=== PATIENT | female | born 1955 | race Caucasian/White ===

== ENCOUNTER → 2017-03-17 | Outpatient (CLI) | payer OTHER | LOC: BMCIMAGING 16:17 | PROVIDERS: ATTEND Internal Medicine Infectious Disease | DX: R53.83 Other fatigue (principal); R07.9 Chest pain, unspecified; M51.35 Other intervertebral disc degeneration, thoracolumbar region ==

== ENCOUNTER → 2017-07-10 | Outpatient (CLI) | payer OTHER ==
[~2017-07-10] MED LIST: IOPAMIDOL (ISOVUE-300) 100 ML BTL ONE
== END ==
LOC: CIMAGING 13:12
PROVIDERS: ATTEND Internal Medicine
DX: K59.00 Constipation, unspecified (principal); D18.09 Hemangioma of other sites; N20.0 Calculus of kidney; Z80.0 Family history of malignant neoplasm of digestive organs; M51.34 Other intervertebral disc degeneration, thoracic region; M51.36 Other intervertebral disc degeneration, lumbar region; M51.26 Other intervertebral disc displacement, lumbar region; M51.27 Other intervertebral disc displacement, lumbosacral region
CPT/HCPCS: 74177-PO; Q9967

== ENCOUNTER 2017-11-13 16:01 | Emergency (ER) | payer OTHER ==
[2017-11-13 16:11] VITALS: RESP 16; TEMP 97.7
--- NOTE | 2017-11-13 16:16 | EDPHY ---
HPI/HX/ROS/PE/MDM Narrative: CHIEF COMPLAINT: Chest pain HPI: This patient is a 62 year old female complaining of chest pain. She has intermittent episodes of "gripping in the chest" for the last three months. This pain begins suddenly and often radiates to her jaw. The pains are sharp and brief, usually resolving within 1-2 minutes. Her pain is not increased with exertion. Recently, these episodes have become more frequent. She has attributed them to stress in the past. Last night, she was getting ready for bed and noted a racing heartbeat. Her has a heart rate monitor and she measured her pulse at 90 bpm. She states her normal heart rate is under 70bpm and she became concerned. Occasionally when she works out, she feels like her heart "cannot keep up with her", but she has not had increased symptoms at those times. She denies known history of heart problems. Additionally, the patient had a recent weight loss of 25 lbs of unknown etiology. She has followed up with PCP. She states she always has pain in her abdomen due to IBS, but denies any new or unusual discomfort. No fever, shortness of breath, vomiting, urinary complaints, or other associated symptoms. REVIEW OF SYSTEMS: Aside from elements discussed in the HPI, a comprehensive 10-point review of systems was reviewed and is negative. PMH: IBS. SOCIAL HISTORY: . Lives in [place]. Employed. PHYSICAL EXAM: General:Patient is alert, in no acute distress. ENT:Eyes are normal to inspection. ENT inspection normal. Neck: Normal inspection. Full range of motion. Respiratory:No respiratory distress. Breath sounds normal bilaterally. Cardiovascular: Regular rate and rhythm. Strong peripheral pulses. Normal cap refill. Abdomen:The abdomen is nontender to palpation. There are no peritoneal signs. There are normal bowel sounds. Back: Normal to inspection. No tenderness to palpation. Skin: Normal color. No rash. Warm and dry. Extremities: Normal appearance. Full range of motion. Neuro: Oriented x3. Normal motor function. Normal sensory function. ED Course: 62 y/o female presents with three month history of intermittent chest pains. Exam unremarkable. Plan for EKG, chest x-ray, labs including CBC, chemistries, troponin, and D-dimer. EKG was ordered and interpreted by myself. Please see [facility] system for official reading. Chest x-ray unremarkable. Troponin negative. Laboratory studies otherwise unremarkable. D-dimer pending at this time. D-dimer negative. 17:45 Reassessed patient. Discussed results. Plan to discharge home in good condition with referral to cardiology. She is comfortable with this plan. MDM: This patient presents with atypical chest pain that has occurred for several months. Workup in the ED is negative for PE, ACS, PTx, PNA or TAD. I offered her admission to the hospital for further testing, but she declines. - Data Points Imaging Results: Imaging Impressions Chest X-Ray 11/13/17 16:14 Impression: Airways disease. Imaging: I viewed and interpreted images myself Laboratory Results: Laboratory Results 11/13/17 16:20 11/13/17 16:20 11/13/17 11/13/17 11/13/17 16:20 16:20 16:20 WBC 5.88 10^3/uL 10^3/uL (3.80-9.50) RBC 4.49 10^6/uL 10^6/uL (4.18-5.33) Hgb 14.3 g/dL g/dL (12.6-16.3) Hct 42.5 % % (38.0-47.0) MCV 94.7 fL fL (81.5-99.8) MCH 31.8 pg pg (27.9-34.1) MCHC 33.6 g/dL g/dL (32.4-36.7) RDW 12.6 % % (11.5-15.2) Plt Count 320 10^3/uL 10^3/uL (150-400) MPV 10.0 fL fL (8.7-11.7) Neut % (Auto) 47.8 % % (39.3-74.2) Lymph % (Auto) 41.2 % % (15.0-45.0) [place] % (Auto) 8.2 % % (4.5-13.0) Eos % (Auto) 1.7 % % (0.6-7.6) Baso % (Auto) 0.9 % % (0.3-1.7) Nucleat RBC Rel Count 0.0 % % (0.0-0.2) Absolute Neuts (auto) 2.82 10^3/uL 10^3/uL (1.70-6.50) Absolute Lymphs (auto) 2.42 10^3/uL 10^3/uL (1.00-3.00) Absolute Monos (auto) 0.48 10^3/uL 10^3/uL (0.30-0.80) Absolute Eos (auto) 0.10 10^3/uL 10^3/uL (0.03-0.40) Absolute Basos (auto) 0.05 10^3/uL 10^3/uL (0.02-0.10) Absolute Nucleated RBC 0.00 10^3/uL 10^3/uL (0-0.01) Immature Gran % 0.2 % % (0.0-1.1) Immature Gran # 0.01 10^3/uL 10^3/uL (0.00-0.10) D-Dimer < 0.27 ug/mLFEU ug/mLFEU (0.00-0.50) Sodium 137 mEq/L mEq/L (135-145) Potassium 4.2 mEq/L mEq/L (3.5-5.2) Chloride 100 mEq/L mEq/L (97-110) Carbon Dioxide 25 mEq/l mEq/l (22-31) Anion Gap 12 mEq/L mEq/L (8-16) BUN 23 mg/dL mg/dL (7-23) Creatinine 1.0 mg/dL mg/dL (0.6-1.0) Estimated GFR 57 Glucose 98 mg/dL mg/dL (70-100) Calcium 9.9 mg/dL mg/dL (8.5-10.4) Troponin I < 0.012 ng/mL ng/mL (0.000-0.034) General Time Seen by Provider: 11/13/17 16:13 Initial Vital Signs: Initial Vital Signs Temperature (C) 36.5 C 11/13/17 16:09 Heart Rate 65 11/13/17 16:09 Respiratory Rate 16 11/13/17 16:09 Blood Pressure 119/82 H 11/13/17 16:09 O2 Sat (%) 99 11/13/17 16:09 O2 Delivery Mode Room Air Allergies/Adverse Reactions: acetaminophen [From Vicodin] Allergy (Verified 11/13/17 16:06) hydrocodone bitartrate [From Vicodin] Allergy (Verified 11/13/17 16:06) hydromorphone HCl [From Dilaudid] Allergy (Verified 11/13/17 16:06) Iodine and Iodide Containing Produc Allergy (Verified 11/13/17 16:06) oxycodone HCl [From Percocet] Allergy (Verified 11/13/17 16:06) Penicillins Allergy (Verified 11/13/17 16:06) promethazine [From Phenergan] Allergy (Verified 11/13/17 16:07) adhesive tape Allergy (Uncoded 10/19/14 20:57) Home Medications: Medication Instructions Recorded OXcarbazepine [Trileptal 300mg (*)] 300 mg PO HS 05/06/11 Zolpidem Tartrate [Ambien 10 mg] 5 mg PO HS 05/06/11 clonazePAM [Klonopin (*)] 0.5 mg PO HS 05/06/11 traZODone [traZODONE 50MG (*)] 12.5 mg PO HS 09/20/15 Cholecalciferol Vit D3 [Vitamin D3 1,000 units PO HS 01/26/16 (*)] Oxcarbazepine [Trileptal] 150 mg PO HS 01/26/16 Departure - Departure Disposition: Home, Routine, Self-Care Clinical Impression: Chest pain Condition: Good Instructions: Chest Pain (ED) Additional Instructions: Follow-up with your primary doctor in 2-3 days. Follow up with a helper coordinator for further testing, as soon as possible, within one week. Return to the Emergency Department for fever, chest pain, shortness of breath, increasing pain or other worsening of condition. Referrals: Michelle Elkins MD [Primary Care Provider] - As per Instructions Blanca Gardner MD [Medical Doctor] - As per Instructions Report Scribed for: Phillip Pan Report Scribed by: Dee Whitfield Date of Report: 11/13/17 Time of Report: 16:33 Physician Review and Approval Statement: Portions of this note were transcribed by an ED scribe. I personally performed the history, physical exam, and medical decision making; and confirm the accuracy of the information in the transcribed note.
--- NOTE | 2017-11-13 16:24 | CPEKG ---
Heart Rate: 63 RR Interval: 952 P-R Interval: 152 QRSD Interval: 80 QT Interval: 388 QTC Interval: 398 P [place]: 66 QRS [place]: 58 T Wave [place]: 44 EKG Severity - NORMAL ECG - EKG Impression: SINUS RHYTHM Electronically Signed By: Betito Mehta 16-Nov-2017 12:28:01
[2017-11-13 16:29] LABS: PLATELET COUNT 320 10^3/uL (150-400)
[2017-11-13 17:39] VITALS: BP 120/64; PULSE 68; O2SAT 98
== END 2017-11-13 17:54 | disposition home or self-care (01) ==
DX: R07.9 Chest pain, unspecified (principal)

== ENCOUNTER → 2018-02-12 | Outpatient (CLI) | payer OTHER | LOC: FIMAGING 10:17 | PROVIDERS: ATTEND Internal Medicine | DX: N93.9 Abnormal uterine and vaginal bleeding, unspecified (principal); R63.4 Abnormal weight loss; D25.9 Leiomyoma of uterus, unspecified; R93.8 Abnormal findings on diagnostic imaging of other specified body structures ==

== ENCOUNTER → 2018-03-19 | Outpatient (CLI) | payer OTHER | LOC: FIMAGING 07:32 | PROVIDERS: ATTEND Neurological Surgery | DX: M46.92 Unspecified inflammatory spondylopathy, cervical region (principal); G54.5 Neuralgic amyotrophy ==

== ENCOUNTER → 2018-10-04 | Outpatient (CLI) | payer OTHER | LOC: BMCIMAGING 13:40 | PROVIDERS: ATTEND Internal Medicine | DX: Z12.31 Encounter for screening mammogram for malignant neoplasm of breast (principal) ==

== ENCOUNTER → 2018-10-24 | Outpatient (CLI) | payer OTHER | LOC: FIMAGING 13:17 | PROVIDERS: ATTEND Neurological Surgery | DX: M47.892 Other spondylosis, cervical region (principal) ==

== ENCOUNTER 2018-12-05 10:05 | Emergency (ER) | payer OTHER ==
--- NOTE | 2018-12-05 10:22 | EDPHY ---
H & P Stated Complaint: hurts to breathe/pain l chest uri symptoms lonf flight and diving last week Source: Patient Exam Limitations: No limitations - Personal History Current Tetanus Diphtheria and Acellular Pertussis (TDAP): Yes - Medical/Surgical History Hx Asthma: No Hx Chronic Respiratory Disease: No Hx Diabetes: No Hx Cardiac Disease: No Hx Renal Disease: No Hx Cirrhosis: No Hx Alcoholism: No Hx HIV/AIDS: No Hx Splenectomy or Spleen Trauma: No Other PMH: PMH: IBS,. PSH: ankle surgery 2012. 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 right foot surgery 09/11/2015, uterine cysts removed, - Social History Smoking Status: Former smoker Time Seen by Provider: 12/05/18 10:21 HPI/ROS: HPI: This is a 63-year-old female who presents with Chief Complaint: hurts to breathe/pain l chest uri symptoms lonf flight and diving last week Location: Left-sided posterior chest Quality: Pleuritic pain Duration: Several days Signs and Symptoms: no shortness of breath at rest, no shortness of breath on exertion, no cough, + chest pain, no palpitations, no lower extremity edema, no wheezing, no orthopnea, no paroxysmal nocturnal dyspnea, no fever, no injury/ trauma, no hemoptysis, no carpal pedal spasms, + nasal congestion Timing: Acute, worse with inspiration Severity: [id number] Context: Patient reports that she was in [facility] with her with last I have occurring approximately 10 days ago on , returned on Thursday to [place], [place] from [place], [place]. She reports that over the last several days she has developed left-sided pleuritic pain around her scapula that is worsened with inspiration. No lower extremity edema. Nonsmoker. Does not take hormone replacement therapy. She does report that on her flight home she started to developed nasal congestion and clear rhinorrhea. She has been taking [place] with moderate relief of her symptoms. She denies fever, cough, orthopnea, wheezing, lower extremity edema, calf pain. She is right- hand dominant. 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 Modifying Factors: See above Comment: ROS: A comprehensive 10 system review of systems is otherwise negative aside from elements mentioned in the history of present illness. MEDICAL/SURGICAL/SOCIAL HISTORY: Medical history: Vitamin-D deficiency, osteoporosis, anxiety. Surgical history: Denies Social history: , retired. CONSTITUTIONAL: Extremely well-appearing talkative, adult female who appears younger than stated age, awake and alert, no obvious distress HEENT: Atraumatic and normocephalic, PERRL, EOMI. Nares patent; no rhinorrhea; no nasal mucosal edema. Tympanic membranes clear. Oropharynx clear, no exudate and moist pink mucosa. Airway patent. No lymphadenopathy. No meningismus. Cardiovascular: Normal S1/S2, regular rate, regular rhythm, without murmur rub or gallop. PULMONARY/CHEST: Symmetrical and nontender. Clear to auscultation bilaterally. Good air movement. No accessory muscle usage. ABDOMEN: Soft, nondistended, nontender, no rebound, no guarding, no peritoneal signs, no masses or organomegaly. No CVAT. EXTREMITIES: 2/2 pulses, strength 5/5, no deformities, no clubbing, no cyanosis or edema. NEUROLOGICAL: no focal neuro deficits. GCS 15. SKIN: Warm and dry, no erythema. no rash. Good capillary refill. (Vianey Marie) Constitutional: Initial Vital Signs Temperature (C) 37 C 12/05/18 10:09 Heart Rate 66 12/05/18 10:09 Respiratory Rate 18 12/05/18 10:09 Blood Pressure 139/89 H 12/05/18 10:09 O2 Sat (%) 97 12/05/18 10:09 O2 Delivery Mode Room Air Allergies/Adverse Reactions: acetaminophen [From Vicodin] Allergy (Verified 12/05/18 10:08) hydrocodone bitartrate [From Vicodin] Allergy (Verified 12/05/18 10:08) hydromorphone HCl [From Dilaudid] Allergy (Verified 12/05/18 10:08) Iodine and Iodide Containing Produc Allergy (Verified 12/05/18 10:08) oxycodone HCl [From Percocet] Allergy (Verified 12/05/18 10:08) Penicillins Allergy (Verified 12/05/18 10:08) promethazine [From Phenergan] Allergy (Verified 12/05/18 10:08) adhesive tape Allergy (Uncoded 10/19/14 20:57) Home Medications: Medication Instructions Recorded OXcarbazepine [Trileptal 300mg (*)] 300 mg PO HS 05/06/11 Zolpidem Tartrate [Ambien 10 mg] 5 mg PO HS 05/06/11 clonazePAM [Klonopin (*)] 0.5 mg PO HS 05/06/11 traZODone [traZODONE 50MG (*)] 12.5 mg PO HS 09/20/15 Cholecalciferol Vit D3 [Vitamin D3 1,000 units PO HS 01/26/16 (*)] Oxcarbazepine [Trileptal] 150 mg PO HS 01/26/16 Medical Decision Making - Diagnostics EKG Interpretation: 12 lead EKG is interpreted in [place] by emergency department physician. (Anitha Monae) ED Course/Re-evaluation: Vital signs reviewed and stable upon arrival. I doubt this is pneumothorax or diving injury as last I have occurred 10 days ago. Patient is high risk for pulmonary embolism and will proceed with CTA chest EKG, IV access, i-STAT laboratory studies ordered 1040: EKG my read with attending shows normal sinus rhythm with rate of 57 beats per minute with flattened T-waves with nonspecific ST changes. 1050: Notified by tech that patient reports she has an iodine allergy. IV Solu -Medrol 125 mg and IV Benadryl 25 mg given 1100: Notified by RN that patient refusing Benadryl. 1120: Labs reviewed. No signs of leukocytosis/anemia/platelet dysfunction/GINNY/ electrolyte imbalance/ACS. Sodium 132, potassium 4.8, creatinine 0.9 1240: Called by radiologist, Dr. Jorge Alaniz, who reports CTA chest shows no pulmonary embolism, no effusion, no opacity, no pneumothorax, no aneurysm, no pericardial effusion. This appears to be musculoskeletal in nature. Advised supportive care. This patient was seen under the supervision of my secondary supervising physician. I evaluated care for this patient independently. (Vianey Marie) The patient was evaluated and managed by the physician dental assistant teacher. I have reviewed this chart and I agree with the findings and plan of care as documented , as indicated by my signature. I am the secondary supervising physician. ( Anitha Monae) Differential Diagnosis: Shortness of breath including but not limited to pulmonary infectious process, COPD, asthma, pulmonary embolus and congestive heart failure. (Vianey Marie) - Data Points Laboratory Results: Laboratory Results 12/05/18 10:40 12/05/18 10:40 Medications Given: Discontinued Medications Diphenhydramine HCl (Benadryl Injection) 25 mg IVP EDNOW ONE Stop: 12/05/18 10:50 Last Admin: 12/05/18 11:17 Dose: Not Given Methylprednisolone Sodium Succinate (Solu-Medrol) 125 mg IVP EDNOW ONE Stop: 12/05/18 10:50 Last Admin: 12/05/18 11:01 Dose: 125 mg Point of Care Test Results: Chemistry 12/05/18 12/05/18 10:45 10:42 POC Sodium 133 mEq/L L mEq/L (135-145) POC Potassium 4.3 mEq/L mEq/L (3.3-5.0) POC Chloride 96 mEq/L L mEq/L (97-110) POC Total CO2 26 mEq/L mEq/L (22-31) POC BUN 17 mg/dL mg/dL (7-23) POC Creatinine 0.9 mg/dL mg/dL (0.6-1.0) POC Glucose 92 mg/dL mg/dL (70-100) POC Troponin I 0.00 ng/mL ng/mL (0.00-0.08) ISTAT H&H 12/05/18 10:45 POC Hgb 15.3 gm/dL gm/dL (12.6-16.3) POC Hct 45 % % (38-47) Departure - Departure Disposition: Home, Routine, Self-Care Clinical Impression: Musculoskeletal back pain Condition: Good Instructions: Musculoskeletal Pain (ED) Additional Instructions: Take Tylenol 650 mg every 4 hours and/or Ibuprofen 600 mg every 8 hours with food as needed for pain. Apply moist heat for 30 minutes at a time; 2-3 times per day for the next 1-2 days. Referrals: Michelle Elkins MD [Primary Care Provider] - Follow Up Only If Needed
[2018-12-05] MEDS ORDERED: methylPREDNISolone SOD SUCC 125 MG/2 ML VIAL IVP ONE (10:49)
[2018-12-05 10:57] LABS: PLATELET COUNT 313 10^3/uL (150-400)
[2018-12-05] MEDS ORDERED: IOPAMIDOL (ISOVUE 370) 100 ML BTL IV ONE (11:34)
[2018-12-05 13:11] VITALS: BP 125/93
--- NOTE | 2018-12-05 16:33 | CPEKG ---
Test Reason : OPEN Blood Pressure : / mmHG Vent. Rate : 057 BPM Atrial Rate : 057 BPM P-R Int : 166 ms QRS Dur : 087 ms QT Int : 405 ms P-R-T Axes : 053 044 030 degrees QTc Int : 395 ms Sinus rhythm Confirmed by Anitha Monae ([id number]) on 12/05/2018 4:33:24 PM Referred By: Anitha Monae Confirmed By:Anitha Monae
== END 2018-12-05 13:10 | disposition home or self-care (01) ==
DX: M54.9 Dorsalgia, unspecified (principal); R07.89 Other chest pain; R06.02 Shortness of breath
CPT/HCPCS: 82435-PO; 82565-PO; 82947-PO; 84132-PO; 84295-PO; 84484-ER; 84520-PO; 85014-ER; 96374; J1200; J2930; Q9967

== ENCOUNTER → 2019-01-28 | Outpatient (CLI) | payer OTHER | LOC: FIMAGING 07:05 | PROVIDERS: ATTEND Internal Medicine | DX: K59.00 Constipation, unspecified (principal); D18.03 Hemangioma of intra-abdominal structures; Z80.0 Family history of malignant neoplasm of digestive organs | CPT/HCPCS: Q9967 ==